=== PATIENT | male | born 1975 | race Caucasian/White ===

== ENCOUNTER 2016-03-13 22:47 | Observation (INO) | payer OTHER ==
--- NOTE | 2016-03-13 23:07 | CPEKG ---
Heart Rate: 70 RR Interval: 857 P-R Interval: 172 QRSD Interval: 94 QT Interval: 400 QTC Interval: 432 P [place]: 72 QRS [place]: 61 T Wave [place]: 47 EKG Severity - NORMAL ECG - EKG Impression: SINUS RHYTHM Electronically Signed By: Saurav Madrid 14-Mar-2016 05:38:57
[2016-03-13] MEDS ORDERED: NITROGLYCERIN 0.4 MG BTL SL PRN (23:09)
[2016-03-13] MEDS ORDERED: ONDANSETRON 4 MG/2 ML VIAL IVP ONE (23:09)
[2016-03-13] MEDS ORDERED: NS 1,000 ML IV ONE (23:09)
[2016-03-13] MEDS ORDERED: ASPIRIN 81 MG CHEWABLE TAB PO ONE (23:09)
--- NOTE | 2016-03-13 23:09 | EDPHY ---
H & P Stated Complaint: CP starting at 1600 at rest after going to gym, left substernal HPI/ROS: HPI CHIEF COMPLAINT: Chest Pain HISTORY OF PRESENT ILLNESS: This patient very pleasant 41-year-old male, denies any significant medical or surgical history he presents to the emergency room with left-sided chest discomfort. Patient tells me this feels like a dull ache in left-sided chest does not radiate. He has had intermittently and frequently since 230 this afternoon. He 1st noticed he had irregular pulse and then developed discomfort in left side of his chest. Decided come the emergency room tonight as the pain kept persisting. He does have pain he describes as 3/10 left-sided dull ache. He denies shortness of breath or pleuritic pain he denies recent illness. Denies fever. Denies nausea or vomiting denies neck pain jaw pain or arm pain. Patient tells me that Past Medical History: Denies significant medical history Past Surgical History: Denies any significant surgical history Social History: Denies use of drugs alcohol tobacco products Family History: noncontributory ROS REVIEW OF SYSTEMS: A comprehensive 10 point review of systems is otherwise negative aside from elements mentioned in the history of present illness. Exam Constitutional triage nursing summary reviewed, vital signs reviewed, awake/ alert. Eyes normal conjunctivae and sclera, EOMI, PERRLA. HENT normal inspection, atraumatic, moist mucus membranes, no epistaxis, neck supple/ no meningismus, no raccoon eyes. Respiratory clear to auscultation bilaterally, normal breath sounds, no respiratory distress, no wheezing. Cardiovascular rate normal, regular rhythm, no murmur, no edema, distal pulses normal. Gastrointestinal soft, non-tender, no rebound, no guarding, normal bowel sounds, no distension, no pulsatile mass. Genitourinary no CVA tenderness. Musculoskeletal no midline vertebral tenderness, full range of motion, no calf swelling, no tenderness of extremities, no meningismus, good pulses, neurovascularly intact. Skin pink, warm, & dry, no rash, skin atraumatic. Neurologic awake, alert and oriented x 3, AAOx3, moves all 4 extremities equally, motor intact, sensory intact, CN II-XII intact, normal cerebellar, normal vision, normal speech. Psychiatric normal mood/affect. Heme/Lymph/Immune no lymphadenopathy. Differential diagnosis includes but is not limited to: ACS, atypical chest pain , pneumothorax, pneumonia, pulmonary embolism, aortic dissection, congestive heart failure, tumor, musculoskeletal pain, esophageal pain, GERD, peptic ulcer disease, pancreatitis Medical Decision Making: This patient had an IV established obtain blood work, chest x-ray, EKG, placed on full stress analyst will rule out acute coronary syndrome. Re-evaluation: EKG interpretation by me on record in [facility] [employer] system. Impression time of EKG 2305, this is sinus rhythm rate of 70 there is no acute ischemic changes appreciated specifically no ST elevation, ST depression, T-wave abnormalities. No signs of cardiac arrhythmia. 1239: Re-examination at this time this patient is resting comfortably. His chest pain did go away after taking nitroglycerin. I did review his chest x-ray , EKG, troponin. I did explain we need to keep him overnight for observation serial enzymes and evaluation given his chest pain story. Staff here in the emergency room is reassuring including a nonischemic EKG, negative troponin and normal chest x-ray. ED x-ray chest one view: Negative for acute cardiopulmonary disease. Image interpreted myself. 1242: Spoke with the hospitalist service Dr. Heredia who agrees to admit this patient. Patient is hemodynamically stable be admitted to [facility] for serial enzymes here EKGs and chest Pain rule. He is chest pain-free after nitroglycerin. Source: Patient - Personal History Current Tetanus/Diphtheria Vaccine: Unsure Current Tetanus Diphtheria and Acellular Pertussis (TDAP): Unsure - Medical/Surgical History Hx Asthma: No Hx Chronic Respiratory Disease: No Hx Diabetes: No Hx Cardiac Disease: No Hx Renal Disease: No Hx Cirrhosis: No Hx Alcoholism: No Hx HIV/AIDS: No Hx Splenectomy or Spleen Trauma: No Other PMH: on recent ECHO mild issue with valve. no PSH - Social History Smoking Status: Never smoked Constitutional: Initial Vital Signs Temperature (C) 36.7 C 03/13/16 22:53 Heart Rate 80 03/13/16 22:53 Respiratory Rate 16 03/13/16 22:53 Blood Pressure 146/89 H 03/13/16 22:53 O2 Sat (%) 96 03/13/16 22:53 O2 Delivery Mode Room Air Allergies/Adverse Reactions: amoxicillin Allergy (Verified 03/13/16 22:53) Home Medications: Medication Instructions Recorded [place] 3 1,000 mg Softgel 03/13/16 Medical Decision Making - Data Points Laboratory Results: Laboratory Results 03/13/16 23:10 03/13/16 23:10 03/13/16 23:10 WBC 6.83 10^3/uL (3.80-9.50) RBC 4.98 10^6/uL (4.40-6.38) Hgb 14.5 g/dL (13.7-17.5) Hct 42.8 % (40.0-51.0) MCV 85.9 fL (81.5-99.8) MCH 29.1 pg (27.9-34.1) MCHC 33.9 g/dL (32.4-36.7) RDW 12.1 % (11.5-15.2) Plt Count 289 10^3/uL (150-400) MPV 10.2 fL (8.7-11.7) Neut % (Auto) 66.5 % (39.3-74.2) Lymph % (Auto) 22.8 % (15.0-45.0) [place] % (Auto) 8.9 % (4.5-13.0) Eos % (Auto) 0.9 % (0.6-7.6) Baso % (Auto) 0.6 % (0.3-1.7) Nucleat RBC Rel Count 0.0 % (0.0-0.2) Absolute Neuts (auto) 4.54 10^3/uL (1.70-6.50) Absolute Lymphs (auto) 1.56 10^3/uL (1.00-3.00) Absolute Monos (auto) 0.61 10^3/uL (0.30-0.80) Absolute Eos (auto) 0.06 10^3/uL (0.03-0.40) Absolute Basos (auto) 0.04 10^3/uL (0.02-0.10) Absolute Nucleated RBC 0.00 10^3/uL (0-0.01) Immature Gran % 0.3 % (0.0-1.1) Immature Gran # 0.02 10^3/uL (0.00-0.10) PT 13.8 SEC (12.0-15.0) INR 1.07 (0.83-1.16) APTT 31.1 SEC (23.0-38.0) D-Dimer < 0.27 ug/mLFEU (0.00-0.50) Sodium 138 mEq/L (134-144) Potassium 4.1 mEq/L (3.5-5.2) Chloride 105 mEq/L (97-110) Carbon Dioxide 23 mEq/l (22-31) Anion Gap 10 mEq/L (8-16) BUN 20 mg/dL (7-23) Creatinine 0.8 mg/dL (0.7-1.3) Estimated GFR > 60 Glucose 106 H mg/dL (70-100) Calcium 9.4 mg/dL (8.5-10.4) Magnesium 2.2 mg/dL (1.6-2.3) Total Bilirubin 0.5 mg/dL (0.1-1.4) Conjugated Bilirubin 0.3 mg/dL (0.0-0.5) Unconjugated Bilirubin 0.2 mg/dL (0.0-1.1) AST 24 IU/L (17-59) ALT 43 IU/L (21-72) Alkaline Phosphatase 73 IU/L (38-126) Creatine Kinase 107 IU/L (0-224) CK-MB (CK-2) Fraction 0.72 ng/mL (0-3.19) Troponin I < 0.012 ng/mL (0-0.034) NT-Pro-B Natriuret Pep 42 pg/mL (0-125) Total Protein 7.2 g/dL (6.3-8.2) Albumin 4.3 g/dL (3.5-5.0) Lipase 74.0 IU/L (23-300) Medications Given: Discontinued Medications Aspirin (Aspirin) 324 mg PO EDNOW ONE Stop: 03/13/16 23:10 Last Admin: 03/13/16 23:18 Dose: 324 mg Sodium Chloride (Ns) 1,000 mls @ 0 mls/hr IV ONCE ONE PRN Reason: As Directed Stop: 03/13/16 23:10 Last Admin: 03/13/16 23:19 Dose: 1,000 mls Morphine Sulfate (Morphine) 4 mg IVP EDNOW ONE Stop: 03/13/16 23:10 Last Admin: 03/13/16 23:38 Dose: Not Given Nitroglycerin (Nitrostat) 0.4 mg SL Q5M PRN PRN Reason: Chest Pain Stop: 03/13/16 23:20 Last Admin: 03/13/16 23:35 Dose: 0.4 mg Ondansetron HCl (Zofran) 4 mg IVP EDNOW ONE Stop: 03/13/16 23:10 Last Admin: 03/13/16 23:35 Dose: Not Given Departure - Departure Disposition: [facility] Inpatient Acute Clinical Impression: Chest pain Qualifiers: Chest pain type: unspecified Qualifier Code: (R07.9) Chest pain, unspecified Condition: Good
[2016-03-13 23:19] LABS: % IMMATURE GRANULYOCYTES 0.3 % (0.0-1.1); ABSOLUTE IMMATURE GRANULOCYTES 0.02 10^3/uL (0.00-0.10); ADD DIFF? NO; ADD MORPH? NO; ADD SCAN? NO; ATYPICAL LYMPHOCYTE FLAG 20 (0-99); FRAGMENT RBC FLAG 0 (0-99); HEMATOCRIT 42.8 % (40.0-51.0); HEMOGLOBIN 14.5 g/dL (13.7-17.5); LEFT SHIFT FLG 0 (0-99); LIPEMIA HEMOLYSIS FLAG 90 (0-99); MEAN CELL HEMOGLOBIN 29.1 pg (27.9-34.1); MEAN CELL HEMOGLOBIN CONCENTR. 33.9 g/dL (32.4-36.7); MEAN CELL VOLUME 85.9 fL (81.5-99.8); MEAN PLATELET VOLUME 10.2 fL (8.7-11.7); PLATELET CLUMPS FLAG 0 (0-99); PLATELET COUNT 289 10^3/uL (150-400); RED BLOOD CELL COUNT 4.98 10^6/uL (4.40-6.38); RED CELL DISTRIBUTION WIDTH 12.1 % (11.5-15.2)
[2016-03-13] MEDS ORDERED: NITROGLYCERIN 0.4 MG BTL SL ONE (23:23)
[2016-03-13 23:27] LABS: INR 1.07 (0.83-1.16); PROTIME(PATIENT) 13.8 SEC (12.0-15.0)
[2016-03-13 23:28] LABS: APTT 31.1 SEC (23.0-38.0)
--- NOTE | 2016-03-13 23:39 | DX ---
Portable Chest at 2329 hours History: Left anterior chest pain. Comparison: PA and lateral chest October 22, 2015. Findings: There is mild peribronchial thickening without focal consolidation, pneumothorax, or visibl e pleural effusion. Heart size is normal. The bones are normal. Impression: Probable mild bronchitis
[2016-03-13 23:48] LABS: ALKALINE PHOSPHATASE 73 IU/L (38-126)
[2016-03-13 23:53] LABS: ALANINE AMINOTRANSFERASE 43 IU/L (21-72); ALBUMIN 4.3 g/dL (3.5-5.0); ANION GAP 10 mEq/L (8-16); ASPARTATE AMINOTRANSFERASE 24 IU/L (17-59); BILIRUBIN,TOTAL 0.5 mg/dL (0.1-1.4); BILIRUBIN-CONJUGATED 0.3 mg/dL (0.0-0.5); BILIRUBIN-UNCONJUGATED 0.2 mg/dL (0.0-1.1); CALCIUM 9.4 mg/dL (8.5-10.4); CARBON DIOXIDE 23 mEq/l (22-31); CHLORIDE 105 mEq/L (97-110); CREATININE 0.8 mg/dL (0.7-1.3); GLOMERULAR FILTRATION RATE > 60; GLUCOSE 106 mg/dL (70-100); MAGNESIUM 2.2 mg/dL (1.6-2.3); POTASSIUM 4.1 mEq/L (3.5-5.2); SODIUM 138 mEq/L (134-144); TOTAL PROTEIN 7.2 g/dL (6.3-8.2)
[2016-03-14 00:04] LABS: CREATINE KINASE-MB FRACTION 0.72 ng/mL (0-3.19); TROPONIN I < 0.012 ng/mL (0-0.034)
[2016-03-14] MEDS ORDERED: oxyCODONE IR 5 MG TAB PO PRN (02:06)
[2016-03-14] MEDS ORDERED: PROMETHAZINE HCL 25 MG/ML INJ IVP PRN (02:06)
[2016-03-14] MEDS ORDERED: LORazepam 2 MG/ML INJ IVP PRN (02:06)
[2016-03-14] MEDS ORDERED: ACETAMINOPHEN 325 MG TAB PO PRN (02:06)
[2016-03-14] MEDS ORDERED: ONDANSETRON DISINTEGRATING 4 MG TAB PO PRN (02:06)
[2016-03-14] MEDS ORDERED: ONDANSETRON 4 MG/2 ML VIAL IVP PRN (02:06)
--- NOTE | 2016-03-14 03:01 | PDGENHP ---
History and Physical - Chief Complaint chest pain - History of Present Illness 41 yo M with no significant PMH presenting with chest pain and irregular heart rate. He notes this began today after work. He initially noticed that his heart was beating irregularly--it seemed to be beating a few times, then skipping a beat and resuming the initial rhythm. This was associated with some chest discomfort. He notes that the discomfort was relatively mild, was located on the left side of his chest without radiation and has since resolved. He did have a couple episodes of both pain and irregular HR in the ER but not since then. He does not note anything that made it better, other than time. He has had similar episodes of chest pain in the past, but never the irregular heart beat. The chest pain he has had has never been exertional or pleuritic, just seems random. He underwent stress testing and echocardiogram many years ago and was told at that time that everything was normal other than mild valvular heart disease, which he is uncertain which valve, but states he was told it is too tight. He is having increased stress recently around his sister's son having some health issues, but denies any other changes in his health or significant life changes. 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, originally from [facility], not , no children Review of Systems ROS: 10pt was reviewed & negative except for what was stated in HPI & below Physical Exam Temp Pulse Resp BP Pulse Ox 36.4 C 64 14 121/88 H 96 03/14/16 01:20 03/14/16 01:20 03/14/16 01:20 03/14/16 01:20 03/14/16 01:20 Constitutional: no apparent distress, appears nourished Eyes: PERRL, anicteric sclera Ears, Nose, Mouth, Throat: moist mucous membranes, hearing normal Cardiovascular: regular rate and rhythym, no murmur, rub, or gallop, No JVD, No edema Respiratory: no respiratory distress, no rales or rhonchi, clear to auscultation Gastrointestinal: normoactive bowel sounds, soft, non-tender abdomen Genitourinary: no bladder tenderness Skin: warm, normal color Musculoskeletal: full muscle strength, no muscle tenderness Neurologic: AAOx3 Psychiatric: interacting appropriately, not anxious, not encephalopathic Lab Data & Imaging Review 03/13/16 23:10 03/13/16 23:10 WBC 6.83 10^3/uL (3.80-9.50) 03/13/16 23:10 RBC 4.98 10^6/uL (4.40-6.38) 03/13/16 23:10 Hgb 14.5 g/dL (13.7-17.5) 03/13/16 23:10 Hct 42.8 % (40.0-51.0) 03/13/16 23:10 MCV 85.9 fL (81.5-99.8) 03/13/16 23:10 MCH 29.1 pg (27.9-34.1) 03/13/16 23:10 MCHC 33.9 g/dL (32.4-36.7) 03/13/16 23:10 RDW 12.1 % (11.5-15.2) 03/13/16 23:10 Plt Count 289 10^3/uL (150-400) 03/13/16 23:10 MPV 10.2 fL (8.7-11.7) 03/13/16 23:10 Neut % (Auto) 66.5 % (39.3-74.2) 03/13/16 23:10 Lymph % (Auto) 22.8 % (15.0-45.0) 03/13/16 23:10 [place] % (Auto) 8.9 % (4.5-13.0) 03/13/16 23:10 Eos % (Auto) 0.9 % (0.6-7.6) 03/13/16 23:10 Baso % (Auto) 0.6 % (0.3-1.7) 03/13/16 23:10 Nucleat RBC Rel Count 0.0 % (0.0-0.2) 03/13/16 23:10 Absolute Neuts (auto) 4.54 10^3/uL (1.70-6.50) 03/13/16 23:10 Absolute Lymphs (auto) 1.56 10^3/uL (1.00-3.00) 03/13/16 23:10 Absolute Monos (auto) 0.61 10^3/uL (0.30-0.80) 03/13/16 23:10 Absolute Eos (auto) 0.06 10^3/uL (0.03-0.40) 03/13/16 23:10 Absolute Basos (auto) 0.04 10^3/uL (0.02-0.10) 03/13/16 23:10 Absolute Nucleated RBC 0.00 10^3/uL (0-0.01) 03/13/16 23:10 Immature Gran % 0.3 % (0.0-1.1) 03/13/16 23:10 Immature Gran # 0.02 10^3/uL (0.00-0.10) 03/13/16 23:10 PT 13.8 SEC (12.0-15.0) 03/13/16 23:10 INR 1.07 (0.83-1.16) 03/13/16 23:10 APTT 31.1 SEC (23.0-38.0) 03/13/16 23:10 D-Dimer < 0.27 ug/mLFEU (0.00-0.50) 03/13/16 23:10 Sodium 138 mEq/L (134-144) 03/13/16 23:10 Potassium 4.1 mEq/L (3.5-5.2) 03/13/16 23:10 Chloride 105 mEq/L (97-110) 03/13/16 23:10 Carbon Dioxide 23 mEq/l (22-31) 03/13/16 23:10 Anion Gap 10 mEq/L (8-16) 03/13/16 23:10 BUN 20 mg/dL (7-23) 03/13/16 23:10 Creatinine 0.8 mg/dL (0.7-1.3) 03/13/16 23:10 Estimated GFR > 60 03/13/16 23:10 Glucose 106 mg/dL (70-100) H 03/13/16 23:10 Calcium 9.4 mg/dL (8.5-10.4) 03/13/16 23:10 Magnesium 2.2 mg/dL (1.6-2.3) 03/13/16 23:10 Total Bilirubin 0.5 mg/dL (0.1-1.4) 03/13/16 23:10 Conjugated Bilirubin 0.3 mg/dL (0.0-0.5) 03/13/16 23:10 Unconjugated Bilirubin 0.2 mg/dL (0.0-1.1) 03/13/16 23:10 AST 24 IU/L (17-59) 03/13/16 23:10 ALT 43 IU/L (21-72) 03/13/16 23:10 Alkaline Phosphatase 73 IU/L (38-126) 03/13/16 23:10 Creatine Kinase 107 IU/L (0-224) 03/13/16 23:10 CK-MB (CK-2) Fraction 0.72 ng/mL (0-3.19) 03/13/16 23:10 Troponin I < 0.012 ng/mL (0-0.034) 03/13/16 23:10 NT-Pro-B Natriuret Pep 42 pg/mL (0-125) 03/13/16 23:10 Total Protein 7.2 g/dL (6.3-8.2) 03/13/16 23:10 Albumin 4.3 g/dL (3.5-5.0) 03/13/16 23:10 Lipase 74.0 IU/L (23-300) 03/13/16 23:10 Visualized and Interpreted Chest x-ray results: Yes Chest X-Ray results: no infiltrate, other (radiologist comments on probably bronchitis) Visualized and Interpreted EKG results: Yes EKG Interpretation: Positive for: normal sinsus rhythm, NS ST wave abnormalities Assessment & Plan Assessment: Chest pain (Acute) 41 year old man with no significant PMH admitted with chest pain and palpitations # chest pain/palpitations: initial w/u so far unremarkable including ecg, cxr and labs. Plan to monitor overnight on telemetry with serial trops and ecg. Will get stress test and echocardiogram in the morning as well as further risk stratification with lipid panel and hgb A1c. Continue aspirin for now. Currently chest pain free, asked patient to alert nursing if pain or palpitations recurred so that repeat ecg could be obtained # valvular heart disease: patient reports being told he has a stenotic valve many years ago, will request copy of this report and as above, repeat echo in am. Cardiac exam this evening is benign. # hyperglycemia: will get hgb A1c as above # observation status, suspect will need < 48 hours stay for eval/mgmt of above Patient new to my care. Old records reviewed and summarized as above. Care plan reviewed with ER doctor including plans for stress testing.
[2016-03-14 05:48] LABS: CHOLESTEROL 127 mg/dL (140-200); CHOLESTEROL/HDL RATIO 4.23 RATIO (1.00-4.97); HIGH DENSITY LIPOPROTEIN 30 mg/dL (40-65); LDL/HDL RATIO 2.73 RATIO (1.00-3.64); LOW DENSITY LIPOPROTEIN 82 mg/dL (70-100); NON-HIGH DENSITY LIPOPROTEIN 97 mg/dL (90-129); TRIGLYCERIDE 76 mg/dL (40-150); VERY LOW DENSITY LIPOPROTEINS 15 mg/dL (8-25)
[2016-03-14 05:59] LABS: TROPONIN I < 0.012 ng/mL (0-0.034)
--- NOTE | 2016-03-14 08:56 | CPEKG ---
Heart Rate: 80 RR Interval: 750 P-R Interval: 168 QRSD Interval: 86 QT Interval: 388 QTC Interval: 448 P [place]: 74 QRS [place]: 58 T Wave [place]: 43 EKG Severity - NORMAL ECG - EKG Impression: SINUS RHYTHM Preliminary Awaiting MD Review
[2016-03-14 09:05] VITALS: TEMP 98.5; O2SAT 97
--- NOTE | 2016-03-14 11:26 | CPEKG ---
Heart Rate: 80 RR Interval: 750 P-R Interval: 168 QRSD Interval: 86 QT Interval: 388 QTC Interval: 448 P [place]: 74 QRS [place]: 58 T Wave [place]: 43 EKG Severity - NORMAL ECG - EKG Impression: SINUS RHYTHM Electronically Signed By: Jessica Burch 14-Mar-2016 17:06:41
[2016-03-14 12:00] VITALS: BP 120/88; PULSE 80; RESP 17
--- NOTE | 2016-03-14 12:06 | CPR ---
[f rep st] NONINVASIVE CARDIAC PROCEDURE REPORT DATE OF PROCEDURE: 03/14/2016 PROCEDURE: Exercise treadmill test. INDICATION: The patient is a 41-year-old male with a history of hypertension, which has resolved ove r the last few years. He also has a family history of coronary artery disease with his father requir ing stenting at the age of 72. The patient presented to the hospital complaining of intermittent lef t-sided chest discomfort which seemed to be worse when lifting weights. He also noted that his heart rate would skip a beat after every few normal beats. He began working out approximately 3 weeks ago on the treadmill and lifting weights. He has no symptoms associated with exercising on the treadmil l, but did note some discomfort with lifting weights. DESCRIPTION OF PROCEDURE: Consent was obtained. The patient was placed on continuous telemetry. Hi s resting EKG reveals normal sinus rhythm with a heart rate of 79, P-R interval 156, QRS duration of 92, his Q-Tc is within normal limits of 422. There were no EKG changes to suggest ischemia. The pat madan exercised on the treadmill for 12 minutes without any associated symptoms. He remained in shauna l sinus rhythm throughout the study. There were no EKG changes to suggest ischemia. He did reach gr eater than 100% of his age-predicted maximum heart rate with his heart rate peaking at 182 beats per minute. His blood pressure at rest was 128/80 and it returned to baseline within 5 minutes of recove ry. PLAN: Low-risk exercise treadmill test. /[id number]/MODL
--- NOTE | 2016-03-14 13:45 | ECHO ---
[id number] + + [address] : : [place] [address] : : [phone] + + Adult Echocardiographic Report + --+ :Name: MERT MOOREMaddie Date: 03/14/2016 08:20 AM : : Hospital Admission Number: [id number] Location: 2 13: :: 1975 Gender: Male Height: 70 in : :Age: 41 yrs Race: WH Weight: 165 lb : :Reason For Study: Eval LV Fx : : BSA: 1.9 meters2 : :History: Chest Pain : + --+ MMode/2D Measurements & Calculations IVSd: 0.81 cm LVIDd: 4.1 cm FS: 31.6 % Ao root diam: 2.7 cm LVPWd: 0.89 cm LVIDs: 2.8 cm EDV(Teich): 73.5 ml ACS: 1.9 cm ESV(Teich): 29.3 ml EF(Teich): 60.1 % Normal Measurement Values: + + :LVIDd (3.5-5.7cm) IVSd (0.6-1.1cm) LVPWd (0.6-1.1cm) Aortic Root (2.0-3.7cm)Left Atrium (1.5-4.0cm): :LV Vol(d) (76-115ml) LV Vol(s) (29-48ml) [place]jec Fraction (50-65%)PV [place] (0.6- 1.2m/s) TV [place] (0.4-1.0m/s) : :MV E [place] (0.8-1.0m/s)MV A [place] (0.3-1.0m/s)LVOT [place] (0.7-1.2m/s) Asc Ao [place] ( 0.9-1.8m/s) : + + Doppler Measurements & Calculations MV E max lavon: Ao V2 max: LV V1 max: PA V2 max: 81.4 cm/sec 135.7 cm/sec 113.0 cm/sec 97.7 cm/sec MV A max [place]: Ao max PG: LV V1 max PG: PA max P.1 cm/sec 7.4 mmHg 5.1 mmHg 3.8 mmHg MV E/A: 1.2 TR max lavon: 259.3 cm/sec TR max P.9 mmHg RAP systole: 5.0 mmHg RVSP(TR): 31.9 mmHg Left Ventricle The left ventricle is normal in size. There is normal left ventricular wall thickness. The left ventricular ejection fraction is normal. Ejection Fraction = 60%. The left ventricular ejection fraction is calculated at 60.1 %. There is subtle basilar anteroseptal/inferolatreral hypokinesis. Right Ventricle The right ventricle is normal in size and function. Atria The left atrial size is normal. Right atrial size is normal. Mitral Valve The mitral valve is normal in structure and function. There is no mitral regurgitation noted. Tricuspid Valve Normal tricuspid valve. There is trace tricuspid regurgitation. Aortic Valve The aortic valve is normal in structure and function. There is no aortic stenosis. There is no aortic insufficiency. Pulmonic Valve The pulmonic valve is not well visualized. There is no pulmonic valvular regurgitation. Great Vessels The aortic root is normal size. Pericardium/Pleural There is no pericardial effusion. Conclusion Would consider a transesophageal echocardiogram if clinically indicated. (1) Left ventricular systolic ejection fraction was normal (60%) - normal wall motion (2) No left ventricular hypertrophy (3) No diastolic dysfunction (4) Normal right ventricular size and function (5) Normal atrial dimensions (6) Grossly normal mitral valve (7) Difficulty with visualization of a trileaflet aortic valve (likely trileaflet, but not clearly seen) without appreciable insufficiency or sclerosis (8) Physiologic tricuspid regurgitation (9) Poor visualization of the pulmonic valve (10) No comparison echocardiograms Would consider a transesophageal echocardiogram if clinically indicated. The left ventricular ejection fraction is normal. Ejection Fraction = 60%. Final Reading Physician: Minerva Bradford signed on 03/14/2016 01:43 PM Ordering Physician: Beth Heredia Performed By: Josh Hernandez, MARY ANNCS
--- NOTE | 2016-03-14 15:07 | GDS ---
[f rep st] DISCHARGE SUMMARY DISCHARGE DIAGNOSES: 1. Acute chest pain. 2. Palpitations. 3. Reported valvular heart disease. 4. Hyperglycemia. Patient is a 41-year-old male with no significant past medical history, presented with chest pain and palpitations. He noticed his heart skipping a beat while at work. It would beat and then skip a beat and then go back to normal. He had some chest discomfort that was mild, located on the left side without radiation, that had resolved by the time he presented to the emergency room. He did not have any numbness in his hands. No shortness of breath. Denies chest pain with exertion. He says he underwent stress testing and an echo years ago, and everything was normal except for mild valvular heart disease. HOSPITAL COURSE BY PROBLEM: 1. Atypical chest pain. Differential included ACS versus PE versus musculoskeletal. Troponins were negative as well as EKGs. Patient underwent an exercise treadmill test that was negative for ischemia. Echocardiogram showed normal LV, RV, and mild TR. The pain has since resolved. Cholesterol was within normal. A1c is pending at time of discharge. 2. Palpitations. EKG with normal sinus rhythm. No evidence of arrhythmia on telemetry. TSH normal. 3. Hyperglycemia: A1c <6. DISPOSITION: Patient is stable for discharge. MEDICATIONS: No new medications. FOLLOWUP: PCP. /[id number]/TARIK DE LA CRUZ
[2016-03-14 18:42] LABS: HEMOGLOBIN A1C 5.3 % (4.0-6.0)
== END 2016-03-14 15:03 | disposition home or self-care (01) ==
LOC: F2W 03-14 01:15
PROVIDERS: ADMIT Internal Medicine; ATTEND Internal Medicine
DX: R07.89 Other chest pain (principal); R00.2 Palpitations; R73.9 Hyperglycemia, unspecified; I38 Endocarditis, valve unspecified
CPT/HCPCS: 71010; 93005; 93017; 93306; 96360; 99285; G0378; J2405